=== PATIENT | female | born 1965 | race Caucasian/White ===

== ENCOUNTER 2022-03-10 18:00 | Inpatient (IN) ==
[2022-03-10] MEDS ORDERED: Isovue-370 500 ML BOTTLE IVP ONE (18:52)
[2022-03-10 19:49] LABS: Basophils # 0.1 K/mcL (0.0-0.2); Basophils % 0.7 %; Eosinophils # 0.4 K/mcL (0.0-0.6); Hematocrit 45.3 % (35.3-44.9); Hemoglobin 14.6 g/dL (11.5-15.4); Immature Granulocytes % 0.6 % (0-4); Lymphocytes # 2.9 K/mcL (0.6-4.6); Lymphocytes % 33.2 %; Mean Corpuscular HGB Conc 32.2 g/dL (31.6-35.5); Mean Corpuscular Volume 90.1 fL (83.0-100.0); Mean Platelet Volume 9.1 fL (9.4-12.4); Monocytes # 0.5 K/mcL (0.0-1.3); Monocytes % 5.9 %; Neutrophils # 4.9 K/mcL (1.6-8.9); Platelet Count 256 K/mcL (140-400); Red Blood Count 5.03 M/mcL (3.82-4.97); Red Cell Distribution Width 13.8 % (11.5-14.5); Segmented Neutrophils % 55.6 %; White Blood Count 8.9 K/mcL (4.3-11.1)
[2022-03-10 20:12] LABS: BUN/Creatinine Ratio 17 (6-26); Blood Urea Nitrogen 16 mg/dL (6-20); Carbon Dioxide 23 mEq/L (23-29); Chloride 107 mEq/L (98-107); Glucose 121 mg/dL (70-105); Osmolality,Calculated 290 (280-300); Potassium 3.6 mEq/L (3.5-5.1); Sodium 139 mEq/L (136-145); Troponin I < 0.03 ng/mL (< 0.04); eGFR For African Americans > 60 (> 60); eGFR For Non-African Americans > 60 (> 60)
[2022-03-10] MEDS ORDERED: *HR* Heparin 5,000 UNIT/ML VIAL IVP ONE ×2 (21:10→21:34)
[2022-03-10] MEDS ORDERED: *HR* Heparin 5,000 UNIT/ML VIAL IVP PRN ×4 (21:10→21:34)
[2022-03-10] MEDS ORDERED: Heparin 25,000UNIT/250ML 1/2NS 25,000 UNIT/250 ML IV.SOLN IVC SCH (21:15)
[2022-03-10 21:38] LABS: Heparin anti-factor XA UFH 0.81 IU/mL (0.30-0.70)
[2022-03-10 21:39] LABS: INR 1.4; Prothrombin Time 15.1 Seconds (9.4-12.1)
[2022-03-10] MEDS: Heparin 25,000UNIT/250ML 1/2NS 25,000 UNIT/250 ML IV.SOLN IVC SCH ×2 (21:39→23:43)
[2022-03-10] MEDS ORDERED: Naloxone 0.4 MG/ML INJ IVP PRN (22:28)
[2022-03-10] MEDS ORDERED: Ondansetron 4 MG/2 ML VIAL IVP PRN (22:28)
[2022-03-10] MEDS ORDERED: Melatonin 3 MG TABLET PO PRN (22:28)
[2022-03-10] MEDS: Nicotine 21 MG PATCH.TD24 TD SCH (23:42)
[2022-03-11 03:57] LABS: Basophils # 0.1 K/mcL (0.0-0.2); Basophils % 0.5 %; Eosinophils # 0.5 K/mcL (0.0-0.6); Eosinophils % 4.5 %; Hematocrit 45.7 % (35.3-44.9); Hemoglobin 14.7 g/dL (11.5-15.4); Immature Granulocytes % 0.7 % (0-4); Lymphocytes # 3.9 K/mcL (0.6-4.6); Lymphocytes % 38.8 %; Mean Corpuscular HGB Conc 32.2 g/dL (31.6-35.5); Mean Corpuscular Hemoglobin 29.1 pg (28.0-33.3); Mean Corpuscular Volume 90.3 fL (83.0-100.0); Mean Platelet Volume 9.5 fL (9.4-12.4); Monocytes # 0.5 K/mcL (0.0-1.3); Neutrophils # 5.1 K/mcL (1.6-8.9); Platelet Count 290 K/mcL (140-400); Red Blood Count 5.06 M/mcL (3.82-4.97); Red Cell Distribution Width 13.8 % (11.5-14.5); Segmented Neutrophils % 50.5 %; White Blood Count 10.1 K/mcL (4.3-11.1)
[2022-03-11 04:01] LABS: Alanine Aminotransferase 19 Units/L (7-52); Albumin 3.8 g/dL (3.5-5.7); Albumin/Globulin Ratio 1.4 (1.1-2.2); Alkaline Phosphatase 72 Units/L (34-104); Aspartate Amino Transferase 19 Units/L (13-39); BUN/Creatinine Ratio 17 (6-26); Bilirubin,Total 0.3 mg/dL (0.3-1.0); Blood Urea Nitrogen 17 mg/dL (6-20); Carbon Dioxide 25 mEq/L (23-29); Chloride 106 mEq/L (98-107); Globulin 2.8 g/dL (2.4-3.5); Glucose 118 mg/dL (70-105); Magnesium 2.3 mg/dL (1.6-2.6); Osmolality,Calculated 291 (280-300); Phosphorous 3.1 mg/dL (2.7-4.5); Potassium 3.8 mEq/L (3.5-5.1); Sodium 139 mEq/L (136-145); Total Protein 6.6 g/dL (6.4-8.9); eGFR For African Americans > 60 (> 60); eGFR For Non-African Americans 58 (> 60)
[2022-03-11] MEDS ORDERED: 0.9 % Sodium Chloride 1,000 ML IVC SCH (06:30)
[2022-03-11 09:08] LABS: Estimated Average Glucose 120 mg/dl; Hemoglobin A1C 5.8 %
[2022-03-11] MEDS: Nicotine 21 MG PATCH.TD24 TD SCH (10:54)
[2022-03-11] MEDS ORDERED: hydrOXYzine pamoate 25 MG CAPSULE PO PRN (10:56)
[2022-03-11] MEDS: Heparin 25,000UNIT/250ML 1/2NS 25,000 UNIT/250 ML IV.SOLN IVC SCH (19:10)
[2022-03-11] MEDS ORDERED: Mirtazapine 15 MG TABLET PO SCH ×2 (21:00)
[2022-03-11] MEDS ORDERED: *HR* HYDROmorphone (PF) 1 MG/ML SYRINGE IVP ONE (22:27)
[2022-03-12 03:31] LABS: Basophils # 0.1 K/mcL (0.0-0.2); Basophils % 0.8 %; Eosinophils # 0.4 K/mcL (0.0-0.6); Eosinophils % 5.9 %; Hematocrit 45.5 % (35.3-44.9); Hemoglobin 14.7 g/dL (11.5-15.4); Immature Granulocytes % 0.5 % (0-4); Lymphocytes # 2.9 K/mcL (0.6-4.6); Lymphocytes % 38.8 %; Mean Corpuscular HGB Conc 32.3 g/dL (31.6-35.5); Mean Corpuscular Hemoglobin 29.6 pg (28.0-33.3); Mean Corpuscular Volume 91.5 fL (83.0-100.0); Mean Platelet Volume 9.1 fL (9.4-12.4); Monocytes # 0.6 K/mcL (0.0-1.3); Monocytes % 7.6 %; Neutrophils # 3.5 K/mcL (1.6-8.9); Platelet Count 261 K/mcL (140-400); Red Blood Count 4.97 M/mcL (3.82-4.97); Red Cell Distribution Width 13.9 % (11.5-14.5); Segmented Neutrophils % 46.4 %; White Blood Count 7.5 K/mcL (4.3-11.1)
[2022-03-12] MEDS: Nicotine 21 MG PATCH.TD24 TD SCH (08:51)
[2022-03-12 11:20] LABS: Heparin anti-factor XA UFH 0.88 IU/mL (0.30-0.70)
[2022-03-12 12:31] LABS: Activated Partial Thrombo Time 160.4 Seconds (26.0-36.0)
[2022-03-12] MEDS ORDERED: Lidocaine HCL 4 ML Topical Solution (Laryng-O-Jet Kit Sterile Pak) TP ONE (12:46)
[2022-03-12] MEDS ORDERED: *HR* Succinylcholine 200 MG/10 ML VIAL IVP ONE (12:47)
[2022-03-12] MEDS ORDERED: *HR* Propofol 200 MG/20 ML VIAL IVP ONE (12:47)
[2022-03-12] MEDS ORDERED: *HR* FentaNYL (PF) 100 MCG/2 ML VIAL ONE (12:47)
[2022-03-12] MEDS ORDERED: *HR* Midazolam HCl 2 MG/2 ML VIAL ONE (12:47)
[2022-03-12] MEDS ORDERED: Lidocaine -MPF 2% 2 ML VIAL ONE (12:47)
[2022-03-12] MEDS ORDERED: Alteplase (Cathflo) 10 MG in 0.9 % Sodium Chloride 100 ML IVPB ONE (12:53)
[2022-03-12] MEDS ORDERED: Heparin 1,000 UNITS/500 mL 500 ML ONE ×2 (13:03→13:06)
[2022-03-12] MEDS ORDERED: Bupivacaine-MPF 0.25% 10 ML VIAL ONE (13:03)
[2022-03-12] MEDS ORDERED: Isovue-300 50ML VIAL ONE (13:06)
[2022-03-12] MEDS ORDERED: *HR* OxyCODONE Immed Rel 5 MG TABLET PO PRN (13:21)
[2022-03-12] MEDS ORDERED: *HR* HYDROmorphone PF 0.5 MG/0.5 ML SYRINGE IVP PRN (13:21)
[2022-03-12] MEDS ORDERED: Ondansetron 4 MG/2 ML VIAL ONE (13:53)
[2022-03-12] MEDS ORDERED: Sugammadex Sodium 200 MG/2 ML VIAL IV ONE (14:34)
[2022-03-12] MEDS ORDERED: Heparin 1,000 UNITS/500 mL 1,000 ML ONE (14:56)
[2022-03-12] MEDS ORDERED: *HR* Magnesium Sulfate 1 GM/2 ML VIAL ONE (15:07)
[2022-03-12] MEDS: Heparin 25,000UNIT/250ML 1/2NS 25,000 UNIT/250 ML IV.SOLN IVC SCH (19:56)
[2022-03-12] MEDS ORDERED: Heparin 25,000UNIT/250ML 1/2NS 25,000 UNIT/250 ML IV.SOLN IVC SCH (20:01)
[2022-03-12] MEDS ORDERED: Ondansetron 4 MG/2 ML VIAL IVP PRN (20:01)
[2022-03-12] MEDS ORDERED: Naloxone 0.4 MG/ML INJ IVP PRN (20:01)
[2022-03-12] MEDS ORDERED: *HR* Heparin 5,000 UNIT/ML VIAL IVP PRN ×2 (20:01)
[2022-03-12] MEDS: Melatonin 3 MG TABLET PO PRN (20:20)
[2022-03-12] MEDS: Mirtazapine 15 MG TABLET PO SCH (20:20)
[2022-03-12] MEDS: hydrOXYzine pamoate 25 MG CAPSULE PO PRN (20:20)
[2022-03-13 01:46] LABS: Basophils % 0.2 %; Eosinophils % 0.1 %; Hematocrit 45.4 % (35.3-44.9); Hemoglobin 14.6 g/dL (11.5-15.4); Immature Granulocytes % 0.6 % (0-4); Lymphocytes # 1.2 K/mcL (0.6-4.6); Lymphocytes % 12.4 %; Mean Corpuscular HGB Conc 32.2 g/dL (31.6-35.5); Mean Corpuscular Hemoglobin 29.6 pg (28.0-33.3); Mean Corpuscular Volume 91.9 fL (83.0-100.0); Mean Platelet Volume 9.5 fL (9.4-12.4); Monocytes # 0.4 K/mcL (0.0-1.3); Monocytes % 4.2 %; Neutrophils # 8.1 K/mcL (1.6-8.9); Platelet Count 241 K/mcL (140-400); Red Blood Count 4.94 M/mcL (3.82-4.97); Segmented Neutrophils % 82.5 %; White Blood Count 9.8 K/mcL (4.3-11.1)
[2022-03-13 02:02] LABS: Calcium 8.9 mg/dL (8.6-10.3); Potassium 4.7 mEq/L (3.5-5.1)
[2022-03-13] MEDS: 0.9 % Sodium Chloride 1,000 ML IVC SCH ×2 (03:46→18:15)
[2022-03-13] MEDS: Nicotine 21 MG PATCH.TD24 TD SCH (08:52)
[2022-03-13] MEDS: hydrOXYzine pamoate 25 MG CAPSULE PO PRN ×2 (12:47→21:02)
[2022-03-13] MEDS ORDERED: Acetaminophen IV 1,000 MG/100 ML BAG IVPB ONE (13:42)
[2022-03-13] MEDS ORDERED: Acetaminophen 325 MG TABLET PO ONE (20:22)
[2022-03-13] MEDS: Mirtazapine 15 MG TABLET PO SCH (20:56)
[2022-03-13] MEDS: Melatonin 3 MG TABLET PO PRN (20:57)
[2022-03-13] MEDS: *HR* Rivaroxaban 15 MG TABLET PO SCH (20:57)
[2022-03-14 01:18] LABS: Basophils # 0.1 K/mcL (0.0-0.2); Basophils % 0.4 %; Eosinophils # 0.2 K/mcL (0.0-0.6); Eosinophils % 1.6 %; Hematocrit 41.4 % (35.3-44.9); Hemoglobin 13.4 g/dL (11.5-15.4); Immature Granulocytes % 0.4 % (0-4); Lymphocytes # 3.6 K/mcL (0.6-4.6); Lymphocytes % 31.1 %; Mean Corpuscular HGB Conc 32.4 g/dL (31.6-35.5); Mean Corpuscular Hemoglobin 29.3 pg (28.0-33.3); Mean Corpuscular Volume 90.6 fL (83.0-100.0); Mean Platelet Volume 9.3 fL (9.4-12.4); Monocytes # 0.7 K/mcL (0.0-1.3); Neutrophils # 7.1 K/mcL (1.6-8.9); Platelet Count 220 K/mcL (140-400); Red Blood Count 4.57 M/mcL (3.82-4.97); Red Cell Distribution Width 14.1 % (11.5-14.5); Segmented Neutrophils % 60.5 %; White Blood Count 11.7 K/mcL (4.3-11.1)
[2022-03-14] MEDS: Nicotine 21 MG PATCH.TD24 TD SCH (09:29)
[2022-03-14] MEDS: *HR* Rivaroxaban 15 MG TABLET PO SCH (09:29)
[2022-03-14 11:21] VITALS: BP 95/55; PULSE 62; TEMP 97.9; O2SAT 94
== END 2022-03-14 15:05 | disposition home or self-care (01) | DRG 182 ==
LOC: 3ANU 18:00 → EMEROOARM 18:00 → SUATTDRO 21:34 → 3ANU 22:07
PROVIDERS: ADMIT Internal Medicine; ATTEND Internal Medicine